=== PATIENT | male | born 1960 | race Caucasian/White ===

== ENCOUNTER 2019-03-08 07:33 | Emergency (ER) | payer BC ==
[~2019-03-08] VITALS: Ht 170.2 cm; Wt 79.4 kg
[2019-03-08] MEDS ORDERED: MELATONIN5 M1 PO (08:00)
[2019-03-08] MEDS ORDERED: METF500 PO (08:00)
[2019-03-08] MEDS ORDERED: AMLO5 PO (08:00)
[2019-03-08 08:01] LABS: BASOPHILS ABSOLUTE AUTO 0.06 K/mm3 (0.00-0.23); BASOPHILS PERCENT AUTO 1 % (0-2); EOSINOPHILS ABSOLUTE AUTO 0.12 K/mm3 (0.00-0.68); EOSINOPHILS PERCENT AUTO 1 % (0-6); Hematocrit 47.6 % (37.0-53.0); Hemoglobin 16.2 g/dL (13.5-17.5); IMMATURE GRAN ABSOLUTE AUTO 0.08 K/mm3 (0.00-0.10); IMMATURE GRAN PERCENT AUTO 1 % (0-1); LYMPHOCYTES ABSOLUTE AUTO 1.84 K/mm3 (0.84-5.20); LYMPHOCYTES PERCENT AUTO 20 % (21-46); MONOCYTES ABSOLUTE AUTO 0.63 K/mm3 (0.16-1.47); MONOCYTES PERCENT AUTO 7 % (4-13); Mean Corpuscular HGB 29.5 pg (26.0-34.0); Mean Corpuscular Volume 87 fL (80-100); Mean Platelet Volume 10.1 fL (9.1-12.4); NEUTROPHILS PERCENT AUTO 70 % (41-73); Platelet Count 243 K/mm3 (150-400); RDW Coefficient Variation 12.3 % (11.7-14.2); RDW Standard Deviation 38.8 fL (35.1-46.3); White Blood Cell Count 9.03 K/mm3 (4.00-11.30)
[2019-03-08] MEDS ORDERED: Inderal80 MG (08:01)
[2019-03-08] MEDS ORDERED: GLIP5 PO (08:01)
[2019-03-08] MEDS ORDERED: LISI5 PO (08:01)
[2019-03-08 08:20] LABS: Alanine Aminotransfer (ALT/SGP 53 U/L (12-78); Albumin, Blood 3.9 g/dL (3.4-5.0); Albumin/Globulin Ratio 1.3 (0.8-1.8); Alk Phos 61 U/L (50-136); Anion Gap 6 mmol/L (6-16); Aspartate Aminotrans (AST/SGOT 25 U/L (12-37); Bilirubin, Total 0.4 mg/dL (0.1-1.0); Blood Urea Nitrogen 17 mg/dL (8-24); Bun/Creatinine Ratio 19.1 (12.0-20.0); CO2, Blood 26 mmol/L (21-32); Calcium, Blood 8.7 mg/dL (8.5-10.1); Chloride, Blood 107 mmol/L (98-108); Creatinine, Blood 0.89 mg/dL (0.60-1.20); Globulin, Blood 2.9 g/dL (2.2-4.0); Glomerular Filtration Rate >60 (60-); Glucose, Blood 215 mg/dL (70-99); Potassium, Blood 4.3 mmol/L (3.5-5.5); Sodium, Blood 139 mmol/L (136-145); Total Protein, Blood 6.8 g/dL (6.4-8.2)
[2019-03-08 09:18] LABS: Source, Urine Clean Catch
[2019-03-08 09:22] LABS: Appearance, Urine Bloody (Clear); Blood, Urine 5+ (Neg); Color, Urine Brown (P-Yellow); Glucose Qualitative, Urine 3+ (Neg); Ketones, Urine 1+ (Neg); Leukocyte Esterase, Urine 2+ (Neg); Nitrite, Urine Pos (Neg); Protein, Urine 3+ (Neg); Specific Gravity, Urine 1.025 (1.003-1.022); Urobilinogen, Urine NORM (Normal)
[2019-03-08 09:32] LABS: Bilirubin, Urine 1+ (Neg)
[2019-03-08 09:35] LABS: Red Blood Cells, Urine TNTC /hpf (0-2); Squamous Epithelial Cells Not Seen /hpf (Few)
[2019-03-08 09:36] LABS: Bacteria Few /hpf; Mucus Light (0-Heavy)
[2019-03-08] MEDS ORDERED: ONDA4ODT MM (11:06)
[2019-03-08] MEDS ORDERED: Percocet 5-3251 EACH PO (11:06)
[2019-03-08] MEDS ORDERED: CEFP200 PO (11:06)
[2019-03-08] MEDS ORDERED: Flomax0.4 MG PO (11:06)
== END 2019-03-08 12:05 | disposition home or self-care (01) ==
LOC: ER 07:33
PROVIDERS: Physician Assistant
DX: N13.2 Hydronephrosis with renal and ureteral calculous obstruction (principal); Z79.84 Long term (current) use of oral hypoglycemic drugs; Z79.899 Other long term (current) drug therapy; I10 Essential (primary) hypertension; E11.9 Type 2 diabetes mellitus without complications
CPT/HCPCS: 74176; 80053; 81001; 83690; 85025; 87086; 96361; 96365; 96375; 96376; 99284-25; J0696; J1170; J1885; J2405; J7120

== ENCOUNTER 2019-03-08 23:15 | Emergency (ER) | payer BC ==
[~2019-03-08] VITALS: Ht 170.2 cm; Wt 79.4 kg
[~2019-03-08 23:15] MED LIST: AMLO5 PO; CEFP200 PO; Flomax0.4 MG PO; GLIP5 PO; Inderal80 MG; LISI5 PO; MELATONIN5 M1 PO; METF500 PO; ONDA4ODT MM; Percocet 5-3251 EACH PO
== END 2019-03-09 04:21 | disposition home or self-care (01) ==
LOC: ER 23:15
DX: N20.1 Calculus of ureter (principal)
CPT/HCPCS: 36415; 96374; 96375; 99283-25; J1170; J1885; J2405